=== PATIENT | female | born 1995 | race Two or more races ===

== ENCOUNTER 2021-03-03 10:20 | Emergency (ER) | payer SELFPAY ==
[2021-03-03 10:33] VITALS: BP 141/74; PULSE 77; TEMP 98; BMI 41.8
[2021-03-03] MEDS ORDERED: ACETAMINOPHEN 500 MG TABLET (FP) PO ONE ×2 (12:00→12:35)
[2021-03-03] MEDS ORDERED: ACETAMINOPHEN 325 MG TABLET (FP) ONE (12:17)
[2021-03-03 12:40] LABS: BASO % 0.8 % (0-2.0); EOS % 4.5 % (0-4.5); HEMATOCRIT 40.6 % (32.4-45.2); HEMOGLOBIN 13.9 GM/dL (10.7-15.3); LYMPH % 31.5 % (8-40); MCH 30.7 pg (25.7-33.7); MCHC 34.3 g/dl (32.0-36.0); MEAN CELL VOLUME 89.7 fl (80-96); MEAN PLT VOLUME 8.6 fl (7.5-11.1); MONO % 4.8 % (3.8-10.2); NEUT % 58.4 % (42.8-82.8); PLATELET COUNT 333 10^3/uL (134-434); RBC 4.53 M/mm3 (3.60-5.2); RDW 13.8 % (11.6-15.6); WHITE BLOOD COUNT 8.7 K/mm3 (4.0-10.0)
[2021-03-03 13:02] LABS: URINE APPEARANCE CLOUDY; URINE BILIRUBIN NEGATIVE (NEGATIVE); URINE COLOR YELLOW; URINE GLUCOSE (UA) NEGATIVE (NEGATIVE); URINE KETONE NEGATIVE (NEGATIVE); URINE LEUK ESTERASE NEGATIVE (NEGATIVE); URINE NITRITE NEGATIVE (NEGATIVE); URINE PROTEIN NEGATIVE (NEGATIVE); URINE UROBILINOGEN 0.2 mg/dL (0.2-1.0)
[2021-03-03 13:10] LABS: CALCIUM 8.8 mg/dL (8.5-10.1)
[2021-03-03 13:14] LABS: CREATININE 0.6 mg/dL (0.55-1.3)
[2021-03-03 13:15] LABS: BILIRUBIN,TOTAL 0.2 mg/dL (0.2-1); TOT PROT 7.7 g/dl (6.4-8.2)
[2021-03-03 13:18] LABS: HCG,QUALITATIVE URINE Positive
== END 2021-03-03 15:23 | disposition home or self-care (01) ==
LOC: JER 10:20
DX: O26.851 Spotting complicating pregnancy, first trimester (principal); Z3A.01 Less than 8 weeks gestation of pregnancy
CPT/HCPCS: 36415; 76830-TC; 80053; 81003; 84702; 84703; 85025; 86850; 86900; 86901; 87086; 87186; 87491; 87591; 99284-25

== ENCOUNTER 2021-03-05 19:18 | Emergency (ER) | payer SELFPAY ==
[2021-03-05 19:26] VITALS: BP 108/71; PULSE 84; TEMP 97; BMI 40.3
== END 2021-03-05 22:26 | disposition home or self-care (01) ==
LOC: JER 19:18 → JERFT 19:18
DX: O03.9 Complete or unspecified spontaneous abortion without complication (principal)
CPT/HCPCS: 36415; 84702; 99283-25

== ENCOUNTER 2023-10-15 22:20 | Emergency (ER) | payer OTHER ==
[2023-10-15 22:27] VITALS: BP 148/82; PULSE 77; RESP 18; TEMP 97.7; BMI 38.7
[2023-10-15 23:23] LABS: URINE APPEARANCE CLOUDY; URINE BILIRUBIN NEGATIVE (NEGATIVE); URINE COLOR YELLOW; URINE GLUCOSE (UA) NEGATIVE (NEGATIVE); URINE KETONE NEGATIVE (NEGATIVE); URINE LEUK ESTERASE NEGATIVE (NEGATIVE); URINE NITRITE NEGATIVE (NEGATIVE); URINE PROTEIN NEGATIVE (NEGATIVE)
[2023-10-16] MEDS ORDERED: ONDANSETRON 4 MG/2 ML VIAL IVPUSH ONE (00:30)
[2023-10-16] MEDS ORDERED: LACTATED RINGERS SOLUTION 1000 ML INFUS.BAG IV ONE (00:30)
[2023-10-16] MEDS ORDERED: ACETAMINOPHEN 1000 MG/100 ML BAG IVPB ONE (00:30)
[2023-10-16 00:50] LABS: BASO % 0.6 % (0-2.0); EOS % 3.1 % (0-4.5); HEMATOCRIT 36.7 % (32.4-45.2); HEMOGLOBIN 12.6 GM/dL (10.7-15.3); MCH 30.2 pg (25.7-33.7); MCHC 34.3 g/dl (32.0-36.0); MEAN CELL VOLUME 88.1 fl (80-96); MEAN PLT VOLUME 8.5 fl (7.5-11.1); MONO % 5.9 % (3.8-10.2); NEUT % 57.4 % (42.8-82.8); PLATELET COUNT 327 10^3/uL (134-434); RBC 4.17 M/mm3 (3.60-5.2); RDW 13.9 % (11.6-15.6); WHITE BLOOD COUNT 12.2 K/mm3 (4.0-10.0)
[2023-10-16 01:22] LABS: POTASSIUM 4.6 mmol/L (3.5-5.1)
[2023-10-16 01:25] LABS: ALBUMIN 3.6 g/dl (3.4-5.0); BLOOD UREA NITROGEN 11.3 mg/dL (7-18)
[2023-10-16 01:28] LABS: CREATININE 0.5 mg/dL (0.55-1.3)
[2023-10-16 01:29] LABS: TOT PROT 7.3 g/dl (6.4-8.2)
[2023-10-16 01:30] LABS: BILIRUBIN,TOTAL 0.3 mg/dL (0.2-1)
[2023-10-16] MEDS ORDERED: ACETAMINOPHEN INJECTION 100 ML IVPB ONE (01:45)
[2023-10-16] MEDS ORDERED: ONDANSETRON 4 MG/2 ML VIAL ONE (01:45)
== END 2023-10-16 03:06 | disposition left against medical advice (07) ==
LOC: JER 22:20
DX: R10.31 Right lower quadrant pain (principal); M54.50 Low back pain, unspecified
CPT/HCPCS: 36415; 76830-TC; 80053; 81003; 84703; 85025; 87086; 99284-25

== ENCOUNTER 2023-11-07 12:13 | Emergency (ER) | payer OTHER ==
[2023-11-07 12:28] VITALS: BP 123/64; PULSE 99; RESP 18; TEMP 97.9; BMI 37.5
[2023-11-07] MEDS: SODIUM CHLORIDE 0.9% 1000 ML INFUS.BAG IV ONE (13:47)
[2023-11-07] MEDS ORDERED: KETOROLAC TROMETHAMINE 30 MG/1 ML VIAL ONE (13:48)
[2023-11-07] MEDS ORDERED: METOCLOPRAMIDE HCL INJECTION 10 MG/2 ML VIAL ONE (13:48)
[2023-11-07] MEDS: KETOROLAC TROMETHAMINE 30 MG/1 ML VIAL IM ONE (13:52)
[2023-11-07] MEDS: METOCLOPRAMIDE HCL INJECTION 10 MG/2 ML VIAL IVPB ONE (13:52)
== END 2023-11-07 16:26 | disposition home or self-care (01) ==
LOC: JERFT 12:13
PROC: 3E033GC Introduction of Other Therapeutic Substance into Peripheral Vein, Percutaneous Approach (ICD-10-PCS; principal; 2023-11-07)
PROC: 3E023GC Introduction of Other Therapeutic Substance into Muscle, Percutaneous Approach (ICD-10-PCS; 2023-11-07)
DX: G44.89 Other headache syndrome (principal); H53.10 Unspecified subjective visual disturbances
CPT/HCPCS: 70450-TC; 99284-25

== ENCOUNTER 2024-01-02 18:00 | Emergency (ER) | payer OTHER ==
[2024-01-02 18:09] VITALS: BP 109/68; PULSE 78; RESP 20; TEMP 98.5; BMI 37.5
[2024-01-02 19:02] LABS: EPI CELLS >36 /uL (0-25.1); HYALINE CASTS 2 /uL (0-3.1); PH,URINE 5.5 (5.0-8.0); URINE APPEARANCE CLOUDY; URINE BACTERIA 1720 /uL (0-1359); URINE BILIRUBIN NEGATIVE (NEGATIVE); URINE COLOR YELLOW; URINE GLUCOSE (UA) NEGATIVE (NEGATIVE); URINE KETONE TRACE (NEGATIVE); URINE LEUK ESTERASE TRACE (NEGATIVE); URINE NITRITE NEGATIVE (NEGATIVE); URINE PROTEIN NEGATIVE (NEGATIVE); URINE RBC 74 /uL (0-23.9); URINE UROBILINOGEN 0.2 mg/dL (0.2-1.0); URINE WBC 46 /uL (0-25.8)
== END 2024-01-02 20:13 | disposition home or self-care (01) ==
LOC: JER 18:00
DX: R10.2 Pelvic and perineal pain (principal); R10.30 Lower abdominal pain, unspecified
CPT/HCPCS: 76830-TC; 81003; 84703; 87086; 87186; 99284-25

== ENCOUNTER 2025-02-20 14:45 | Emergency (ER) | payer OTHER ==
[2025-02-20 14:53] VITALS: BP 116/69; PULSE 79; RESP 18; TEMP 98.2; BMI 42.3
[2025-02-20 16:32] LABS: ABSOLUTE IMMATURE GRANULOCYTES 0.02 x10^3/uL (0.0-0.031); BASOPHILS # 0.04 x10^3/uL (0.01-0.08); EOSINOPHIL % 2.9 % (0.7-5.8); EOSINOPHILS # 0.26 x10^3/uL (0.04-0.36); MCHC 32.3 g/dl (32.2-35.5); MEAN CELL VOLUME 89.7 fl (79.4-94.8); MEAN PLT VOLUME 10.2 fl (9.4-12.3); MONOCYTE # 0.44 x10^3/uL (0.24-0.86); MONOCYTE % 5.0 % (4.7-12.5); RDW 13.9 % (12.1-16.8)
[2025-02-20 17:55] LABS: HCV DIAGNOSTIC IN-HOUSE W/RFLX NON-REACTIVE (NONREACTIVE)
[2025-02-20 17:57] LABS: HIV INTERPRETATION NEGATIVE (NEGATIVE)
== END 2025-02-20 17:42 | disposition home or self-care (01) ==
LOC: JER 14:45
DX: N92.6 Irregular menstruation, unspecified (principal)
CPT/HCPCS: 36415; 84702; 84703; 85025; 86803; 87389; 99283-25